=== PATIENT | female | born 1995 | race Caucasian/White ===

== ENCOUNTER 2017-12-22 15:33 | Emergency (ER) | payer OTHER ==
[2017-12-22 15:55] VITALS: BP 114/85
--- NOTE | 2017-12-22 15:57 | UC ---
Ear Complaint HPI - HPI Summary HPI Summary: 22 yo female presents with sensation of popping and clogged ears since this morning. She tried claritin and mucinex with no relief. She denies fever, chills , headache, dizziness, sore throat, or sinus symptoms. - History of Current Complaint Chief Complaint: UCEar Stated Complaint: EAR COMPLAINT Time Seen by Provider: 12/22/17 15:57 Hx Obtained From: Patient Hx Last Menstrual Period: 12/20/17 Onset/Duration: Sudden Onset Severity Initially: Mild Severity Currently: Mild Pain Intensity: 2 Pain Scale Used: 0-10 Numeric - Allergies/Home Medications Allergies/Adverse Reactions: Allergies Allergy/AdvReac Type Severity Reaction Status Date / Time No Known Allergies Allergy Verified 12/22/17 15:48 Home Medications: Home Medications Ibuprofen TAB* [Motrin TAB* 600 MG] 600 mg PO Q6H PRN 12/22/17 [History Confirmed 12/22/17] Levonorgestrel-Ethin Estradiol [Altavera-28 Tablet] 1 tab DAILY 12/22/17 [ History Confirmed 12/22/17] PARoxetine HCL TAB* [Paxil TAB*] 20 mg QAM 12/22/17 [History Confirmed 12/22/17] PMH/Surg Hx/FS Hx/Imm Hx Previously Healthy: Yes Psychological History: Anxiety - Surgical History Surgical History: None - Family History Known Family History: Positive: None - Social History Occupation: Employed Full-time Lives: With Family Alcohol Use: Occasionally Substance Use Type: None Smoking Status (MU): Never Smoked Tobacco Review of Systems Constitutional: Negative Skin: Negative Eyes: Negative ENT: Ear Ache Respiratory: Negative Cardiovascular: Negative Gastrointestinal: Negative Neurovascular: Negative Neurological: Negative Psychological: Negative All Other Systems Reviewed And Are Negative: Yes Physical Exam - Summary Physical Exam Summary: GENERAL: NAD. WDWN. No pain distress. SKIN: No rashes, sores, lesions, or open wounds. HEENT: Head: AT/NC Eyes: EOM intact. Conjunctiva clear without inflammation or discharge. Ears: Hearing grossly normal. TMs intact, no bulging, erythema, or edema. Nose: Nasal mucosa pink and moist. NTTP maxillary and frontal sinus. Throat: Posterior oropharynx without exudates, erythema, or tonsillar enlargement. Uvula midline. NECK: Supple. Nontender. No lymphadenopathy. CHEST: CTAB. No r/r/w. No accessory muscle use. Breathing comfortably and in no distress. CV: RRR. Without m/r/g. Pulses intact. Brisk cap refill. NEURO: Alert. CN II-XII grossly intact. PSYCH: Age appropriate behavior. Triage Information Reviewed: Yes Vital Signs: Initial Vital Signs Temp 99.3 F 12/22/17 15:50 Pulse 90 12/22/17 15:50 Resp 16 12/22/17 15:50 BP 114/85 12/22/17 15:50 Pulse Ox 100 12/22/17 15:50 Ear Complaint Course/Dx - Course Course Of Treatment: Suspect eustacian tube dysfunction. Advised to continue claritin and add flonase daily and to give it 5-7 days to improve. F/u prn - Differential Dx/Diagnosis Provider Diagnoses: Eustacian tube dysfunction Discharge - Sign-Out/Discharge Documenting (check all that apply): Patient Departure - Discharge Plan Condition: Stable Disposition: HOME Prescriptions: Fluticasone NASAL SPRAY 50MCG* [Flonase NASAL SPRAY 50MCG*] 2 spray BOTH NARES DAILY #1 btl Referrals: Alina Ambrose MD [Primary Care Provider] - Additional Instructions: If you develop a fever, shortness of breath, chest pain, new or worsening symptoms - please call your PCP or go to the ED. Per institutional requirements, I have reviewed the chart, however, I was not consulted specifically or made aware of this patient by the above midlevel provider. I did not personally evaluate, interact with , or disposition this patient. - Billing Disposition and Condition Condition: STABLE Disposition: Home
== END 2017-12-22 16:06 | disposition home or self-care (01) ==
LOC: UCCORT 15:33
DX: H69.93 Unspecified Eustachian tube disorder, bilateral (principal)
CPT/HCPCS: 99212; G0463

== ENCOUNTER 2018-09-09 20:00 | Emergency (ER) | payer BC, OTHER ==
[2018-09-09 20:28] VITALS: BP 123/87
--- NOTE | 2018-09-09 20:52 | UC ---
Throat Pain/Nasal Saturnino HPI - HPI Summary HPI Summary: Onset 09/07/18 rhinitis, cough, sneezing; onset of sore throat yesterday, coughing that caused vomiting yesterday. - History of Current Complaint Chief Complaint: UCGeneralIllness Stated Complaint: THROAT COMPLAINT Time Seen by Provider: 09/09/18 20:29 Hx Obtained From: Patient Hx Last Menstrual Period: 09/06/18 ?: No Onset/Duration: Sudden Onset, Lasting Days Severity: Moderate Pain Intensity: 7 Cough: Productive Associated Signs & Symptoms: Positive: Dysphagia, Hoarseness, Sinus Discomfort - Allergies/Home Medications Allergies/Adverse Reactions: Allergies Allergy/AdvReac Type Severity Reaction Status Date / Time No Known Allergies Allergy Verified 09/09/18 20:21 Home Medications: Home Medications Multivitamin [Multivitamins] 1 cap PO DAILY 09/09/18 [History Confirmed 09/09/18 ] PMH/Surg Hx/FS Hx/Imm Hx Previously Healthy: Yes - Surgical History Surgical History: None - Family History Known Family History: Positive: None Negative: Cardiac Disease, Hypertension - Social History Alcohol Use: Occasionally Substance Use Type: None Smoking Status (MU): Never Smoked Tobacco Review of Systems All Other Systems Reviewed And Are Negative: Yes Constitutional: Positive: Negative Skin: Positive: Negative ENT: Positive: Sore Throat, Nasal Discharge, Sinus Congestion, Sinus Pain/ Tenderness Respiratory: Positive: Cough Physical Exam Triage Information Reviewed: Yes Appearance: Well-Nourished, Ill-Appearing, Pain Distress Vital Signs: Initial Vital Signs Temp 98.5 F 09/09/18 20:24 Pulse 87 09/09/18 20:24 Resp 15 09/09/18 20:24 BP 123/87 09/09/18 20:24 Pulse Ox 100 09/09/18 20:24 Vital Signs Reviewed: Yes Eye Exam: Normal ENT: Positive: Pharyngeal erythema, Nasal congestion, Dental tenderness, Sinus tenderness Dental Exam: Normal Neck exam: Normal Respiratory Exam: Normal Respiratory: Positive: Chest non-tender, Lungs clear, Normal breath sounds Cardiovascular Exam: Normal Cardiovascular: Positive: RRR, No Murmur, Pulses Normal Abdominal Exam: Normal Musculoskeletal Exam: Normal Neurological Exam: Normal Psychological Exam: Normal Skin Exam: Normal Throat Pain/Nasal Course/Dx - Course Course Of Treatment: hx obtained, exam performed, meds reviewed, treated for sinusitis - Differential Dx/Diagnosis Provider Diagnosis: Sinusitis Discharge - Sign-Out/Discharge Documenting (check all that apply): Patient Departure All imaging exams completed and their final reports reviewed: No Studies - Discharge Plan Condition: Stable Disposition: HOME Prescriptions: Amoxicillin PO (*) [Amoxicillin 875 MG (*)] 875 mg PO BID #20 tab Patient Education Materials: Sinusitis (ED) Referrals: Alina Ambrose MD [Primary Care Provider] - Additional Instructions: 1. take the medication as prescribed. 2. TAke a decongestant such as Claritin D daily 3. Warm compresses to ears as needed 4. Ibuprofen for pain and fever. - Billing Disposition and Condition Condition: STABLE Disposition: Home
== END 2018-09-09 20:57 | disposition home or self-care (01) ==
LOC: UCCORT 20:00
DX: J32.9 Chronic sinusitis, unspecified (principal)
CPT/HCPCS: 87651; 99212; G0463